=== PATIENT | male | born 1985 | race Caucasian/White ===

== ENCOUNTER 2017-10-19 06:36 | Day surgery (SDC) | payer OTHER ==
[~2017-10-19 06:36] MED LIST: ACETAMINOPHEN 500 MG TABLET PO PRN; HYDROmorphone HCL 2 MG/ML VIAL IV PRN; MAG HYDROX/ALUMINUM HYD/SIMETH 30 ML UDC PO PRN; MAGNESIUM HYDROXIDE 30 ML UDC PO PRN; ONDANSETRON HCL/PF 2 MG/ML VIAL IV PRN; PROMETHAZINE HCL 25 MG in DEXTROSE 5 % IN WATER 50 ML IV PRN; RINGER'S SOLUTION,LACTATED 1,000 ML IV PRN; VANCOMYCIN HCL 1 GM in DEXTROSE 5 % IN WATER 250 ML IV PRN; ZOLPIDEM TARTRATE 5 MG TABLET PO PRN; ceFAZolin SODIUM 1 GM VIAL IV PRN; diphenhydrAMINE HCL 50 MG/ML VIAL IV PRN; oxyCODONE HCL/ACETAMINOPHEN 1 TAB TABLET PO PRN
[2017-10-19] MEDS ORDERED: RINGER'S SOLUTION,LACTATED 1,000 ML IV ONE (07:14)
--- NOTE | 2017-10-19 09:47 | POSTOP NO ---
Date of Surgery: 10/19/17 Patient Tolerated the Procedure: Well Post Operative Diagnosis/Procedures: Detonator Maker: None Post-operative Diagnosis: Left anterior labral tear Finding: Above Procedure: Left shoulder arthroscopy with anterior labral repair Estimated Blood Loss: Minimal Specimens: None
--- NOTE | 2017-10-19 09:52 | OR ---
Operative Report - Dictated Report Narrative: Date: 10/19/2017 Physician: [place] M.D. Founder And Chief Executive Officer: None Preoperative diagnosis: Left Shoulder anterior labral tear Postoperative diagnosis: Left Shoulder anterior labral tear Procedure: Left shoulder arthroscopy with anterior labral repair Anesthesia: General plus regional Complications: None Estimated blood loss: Minimal Specimens: None Retained implants: [employer] 2.3 mm peek bio Raptor straight anchor 4 Drains: None Indications: Mr. Gaytan Is a 32 year-old gentleman who has been followed in my clinic with complaints of shoulder pain consistent with a work-related injury resulting in an anterior labral tear. Physical exam and diagnostic imaging were consistent with his complaints and concern for anterior labral tear. Conservative measures have failed including, but not limited to, passage of time, activity modification, medications, physical therapy/home exercise program, or injections. The risks, benefits, and alternatives were discussed in clinic. The risks being , bleeding, infection, blood clots, nerve, tendon, ligament , blood vessel injury, persistent pain, arthrosis, stiffness, need for prolonged therapy, need for additional procedures, and persistent symptoms. Consent was obtained in the clinic. Procedure: After marking the correct extremity in the preoperative holding area, a timeout was performed in the operating room. IV antibiotics consisting of Ancef and vancomycin were administered prior to the procedure. A general followed by regional anesthetic was induced by the nurse supervisor ovens per my request. This was in the supine position, then the patient was transitioned to a beachchair position with all bony prominences well-padded, head in neutral, the nonoperative arm well supported, and the legs padded with SCDs in place. The operative shoulder was then prepped and draped in a standard sterile fashion. Preoperatively the shoulder had full passive range of motion, and grade 1 anterior instability. After marking out the bony landmarks, saline was infused into the joint through a posterior lateral portal site. A mary alice incision was made, and the blunt trocar and cannula was introduced into the shoulder joint. An accessory portal was placed in the rotator cuff interval using a spinal needle for guidance. Upon initial evaluation, the biceps tendon showed no tendinopathy or tear and was noted to be intact as it inserted on the labrum. The middle glenohumeral ligament was intact and attached to the anterior labral tear. Subscapularis tendon was unremarkable. The glenoid showed no Bankart or arthrosis. The humeral head articular surface showed no arthrosis or Hill- Sachs. The anterior labrum was torn and elevated from approximately the 7 o' clock position to just anterior to the biceps. The superior labrum was intact. The pouch was unremarkable. The posterior labrum was intact. The supraspinatus tendon was intact. The infraspinatus tendon was intact. Utilizing an accessory anterior portal, the anterior labrum was mobilized off the anterior glenoid. The anterior glenoid rim was prepared using a rasp and shaver. The inferior and superior labrum were stable and thus for straight anchors were placed at the 8:00, 9:00, 10:00, and 11:00 positions. The middle glenohumeral ligament with the anterior labrum was then repaired down to the anterior glenoid starting from inferior to superior tying these with the knots away from the joint. This resulted in a return of the anterior glenoid bumper and stabilization of the anterior labrum. The shoulder was then noted to be stable to anterior drawer with resolution of his anterior instability. We then placed shoulder through a range of motion and the labral repair was stable. The shoulder was then thoroughly irrigated irrigated and evacuated of its fluid. The portal sites were closed with interrupted nylon. Dressings consisting of Xeroform, 4 x 4, ABD, and tape were applied. All sponge, needle, blade, and instrument counts were correct prior to closing the wounds. The patient was awoken and transferred to the postanesthesia care unit in stable condition.
--- NOTE | 2017-10-19 10:06 | OR ---
Anesthesia Procedure Note - Anesthesia Procedure Note Date of Service: 10/19/17 Narrative: Vital Signs - Last Taken Temp 36.4 C L 10/19/17 10:00 Pulse 92 10/19/17 10:00 Resp 16 10/19/17 10:00 BP 116/87 10/19/17 10:00 Pulse Ox 100 10/19/17 10:00 O2 Oxygen Delivery Method Room Air 10/19/17 10:05 ANESTHESIA PROCEDURE NOTE Date of Procedure: 10/19/2017. Time of procedure: 744. Performed by: Hi Vasquez CRNA Traffic Superintendent: None. Preprocedure diagnosis: Left shoulder labral tear. Post procedure diagnosis: Same. Procedure: Left ultrasound guided interacalene nerve block for postoperative analgesia. Indications: The patient is a 32 -year-old male, who is requesting a left ultrasound-guided interscalene nerve block for postoperative analgesia related to left shoulder labral repair. Findings: See below. Details of the procedure: The tissue over the intended target site was cleansed with ChloraPrep. 1 ml Lidocaine 1 % was infiltrated to the skin and subcutaneous tissue. Under sterile technique and ultrasound guidance a 22-gauge block needle was inserted to the left brachial plexus nerve bundle between the anterior scalene and the middle scalene muscles. 40 mL's of 0.5% bupivacaine plus epinephrine 1:200,000 was injected after negative aspiration for blood. Needle tip and spread of local anesthetic around the brachial plexus was observed throughout the injection with real time ultrasound visualization. The needle was removed intact. No complications were noted. The images were retained in the hospital medical database . EBL: Minimal. Fluids: N/A. Specimen: N/A. Post procedure condition: The patient tolerated the procedure well. No complications were noted. Thank you for this consultation. Hi Vasquez CRNA
[2017-10-19 11:32] VITALS: BP 102/56
[2017-10-19] MEDS ORDERED: SENNOSIDES/DOCUSATE SODIUM 1 TAB TABLET PO SCH (21:00)
== END 2017-10-19 06:37 | disposition home or self-care (01) ==
LOC: AMB 06:36
PROVIDERS: ATTEND Orthopaedic Surgery
PROC: 0MM24ZZ Reattachment of Left Shoulder Bursa and Ligament, Percutaneous Endoscopic Approach (ICD-10-PCS; principal; 2017-10-19)
PROC: 3E0T3BZ Introduction of Anesthetic Agent into Peripheral Nerves and Plexi, Percutaneous Approach (ICD-10-PCS; 2017-10-19)
DX: Z68.23 Body mass index [BMI] 23.0-23.9, adult; F32.9 Major depressive disorder, single episode, unspecified; F17.200 Nicotine dependence, unspecified, uncomplicated; S43.492A Other sprain of left shoulder joint, initial encounter; S43.432A Superior glenoid labrum lesion of left shoulder, initial encounter